=== PATIENT | female | born 1935 | race Caucasian/White ===

== ENCOUNTER → 2017-01-19 | Outpatient (CLI) | payer MEDICARE ==
[~2017-01-19] MED LIST: COREG12.5 MG PO; ELAVIL10 MG PO; VIBRAMYCIN100 MG PO
== END | disposition home or self-care (01) ==
LOC: RAD 09:04
DX: M47.897 Other spondylosis, lumbosacral region (principal)

== ENCOUNTER → 2017-11-22 | Outpatient (CLI) | payer OTHER | END | disposition home or self-care (01) | LOC: MRI 08:38 | DX: M54.5 Low back pain (principal); M70.62 Trochanteric bursitis, left hip; M76.02 Gluteal tendinitis, left hip ==

== ENCOUNTER 2023-05-21 13:34 | Emergency (ER) | payer OTHER, MEDICARE ==
[~2023-05-21] VITALS: Ht 152.4 cm; Wt 68.0 kg
[2023-05-21 14:18] VITALS: BP 159/64
== END 2023-05-21 18:23 | disposition home or self-care (01) ==
LOC: ED 13:34
DX: R51.9 Headache, unspecified (principal); M54.2 Cervicalgia; Z79.01 Long term (current) use of anticoagulants; I10 Essential (primary) hypertension; Z90.49 Acquired absence of other specified parts of digestive tract; Z90.710 Acquired absence of both cervix and uterus; Z98.51 Tubal ligation status; Z95.5 Presence of coronary angioplasty implant and graft; Z98.890 Other specified postprocedural states